=== PATIENT | male | born 1980 | race Caucasian/White ===

== ENCOUNTER 2016-05-28 01:44 | Emergency (ER) | payer BC ==
[~2016-05-28] VITALS: Ht 185.4 cm; Wt 135.0 kg
[2016-05-28 01:47] VITALS: TEMP 36.9; Ht 185.4 cm; Wt 135.0 kg
[2016-05-28] MEDS ORDERED: SODIUM CHLORIDE 0.9% 500ML 500 ML IV STA (02:04)
[2016-05-28] MEDS ORDERED: OPTIRAY 320 IV PRN (02:15)
[2016-05-28 02:25] LABS: BASO % 0.4 %; BASO ABS # 0.04 K/uL (0-0.2); COMPLETE YES; EOS % 2.4 %; HEMATOCRIT 48.5 % (42-52); IG% 0.3 %; LYMPH % 36.2 %; LYMPH ABS # 3.25 K/uL (1.2-3.4); MEAN CELL VOLUME 87.1 fL (80-100); MEAN CORPUSCULAR HEMOGLOBIN 31.8 pg (25-34); MEAN CORPUSCULAR HGB CONC 36.5 g/dl (32-36); MEAN PLATELET VOLUME 11.7 fL (7.4-10.4); MONO % 10.5 %; NEUT % 50.2 %; PLATELET COUNT 166 K/uL (130-400); RED BLOOD COUNT 5.57 M/uL (4.7-6.1); WHITE BLOOD COUNT 8.98 K/uL (4.8-10.8)
[2016-05-28 02:52] LABS: ALKALINE PHOSPHATASE 83 U/L (45-117); ALT/SGPT 74 U/L (12-78); BLOOD UREA NITROGEN 11 mg/dl (7-18); BUN/CREATININE RATIO 11.8 (10-20); CALCIUM 8.8 mg/dl (8.5-10.1); CARBON DIOXIDE 28 mmol/L (21-32); CHLORIDE 104 mmol/L (98-107); CKMB/CK RATIO 0.8 (0-3.0); CREATININE 0.93 mg/dl (0.60-1.40); GLUCOSE 105 mg/dl (70-99); SODIUM 141 mmol/L (136-145)
[2016-05-28 03:02] LABS: POTASSIUM 3.7 mmol/L (3.5-5.1)
[2016-05-28 03:10] LABS: AST/SGOT 31 U/L (15-37)
--- NOTE | 2016-05-28 04:51 | EMERGENCY ROOM VISIT NOTE ---
History First contact with patient: 01:50 Chief Complaint: SHORTNESS OF BREATH Stated Complaint: SOB WHILE LYING DOWN,OFF/ON WEIRD CHEST [facility] Nursing Triage Summary: Patient c/o SOB when lying flat that began two nights ago. Denies cardiac hx. History of Present Illness The patient is a 36 year old male who presents to the Emergency Room with complaints of intermittent chest pain and short of breath for the past 2 nights. Patient states for the past 2 nights when he lays down he is short of breath. Patient states he's been having occasional chest pains for the past few days that is brief in nature. Less than 1 minute. Patient does smoke. He does not see a doctor in a routine basis. Patient denies any active medical problems. Patient had a cold a few months ago. Patient denies prolonged chest pain, abdominal pain, fever, chills, cough, congestion, leg pain or swelling. Review of Systems See HPI for pertinent positives & negatives. A total of 10 systems reviewed and were otherwise negative. Past Medical/Surgical History [place] Social History Smoking Status: Current Every Day Smoker Smokeless Tobacco Use: No Drug Use: none Marital Status: Housing Status: lives with family Occupation Status: employed Current/Historical Medications No Active Prescriptions or Reported Meds Allergies Coded Allergies: BEE STING (Verified Allergy, Intermediate, SWELLING, 05/28/16) Physical Exam Vital Signs Date Time Temp Pulse Resp B/P Pulse Ox O2 Delivery O2 Flow Rate FiO2 05/28/16 03:05 111 18 146/90 98 Room Air 05/28/16 02:16 108 05/28/16 02:12 Room Air 05/28/16 02:12 Room Air 05/28/16 01:47 99 Room Air 05/28/16 01:47 36.9 102 18 197/67 99 Room Air Physical Exam VITALS: Vitals are noted on the nurse's note and reviewed by myself. Vital signs stable. GENERAL: Pleasant anxious-appearing male, in no acute distress, nondiaphoretic, well-developed well-nourished. SKIN: The skin was without rashes, erythema, edema, or bruising. There is no tenting of the skin. Capillary reflex less than 2 seconds. HEAD: Normocephalic atraumatic. EARS: External auditory canals clear, tympanic membranes pearly [place] without erythema or effusion bilaterally. EYES: Pupils equal round and reactive to light and accommodation. Conjunctivae without injection, sclerae without icterus. Extraocular movements intact. NOSE: Patent, turbinates without inflammation or discharge. MOUTH: Mucous membranes moist. Pharynx without erythema or exudate. Uvula midline. Airway patent. Tongue does not deviate. NECK: Supple without nuchal rigidity. No lymphadenopathy. No thyromegaly. Cervical spine is nontender. No JVD. HEART: Regular rate and rhythm without murmurs gallops or rubs. Chest nontender to palpation LUNGS: Clear to auscultation bilaterally without wheezes, rales or rhonchi. No dullness to percussion. No retractions or accessory muscle use. ABDOMEN: Positive bowel sounds x 4. Normal tympanic percussion. Soft, nontender, without masses or organomegaly. Velasquez sign negative. No guarding or rebound tenderness. MUSCULOSKELETAL: No muscle atrophy, erythema, or edema noted. NEURO: Patient was alert and oriented to person place and time. Normal sensation to light and sharp touch. No focal neurological deficits. Medical Decision & Procedures Laboratory Results 05/28/16 02:00 Red Blood Count 5.57, Mean Corpuscular Volume 87.1, Mean Corpuscular Hemoglobin 31.8, Mean Corpuscular Hemoglobin Concent 36.5, Mean Platelet Volume 11.7, Neutrophils (%) (Auto) 50.2, Lymphocytes (%) (Auto) 36.2, Monocytes (%) (Auto) 10.5, Eosinophils (%) (Auto) 2.4, Basophils (%) (Auto) 0.4, Neutrophils # (Auto ) 4.50, Lymphocytes # (Auto) 3.25, Monocytes # (Auto) 0.94, Eosinophils # (Auto ) 0.22, Basophils # (Auto) 0.04 05/28/16 02:00 Test 05/28/16 02:00 05/28/16 02:06 05/28/16 04:00 White Blood Count 8.98 K/uL (4.8-10.8) Red Blood Count 5.57 M/uL (4.7-6.1) Hemoglobin 17.7 g/dL (14.0-18.0) Hematocrit 48.5 % (42-52) Mean Corpuscular Volume 87.1 fL (80-100) Mean Corpuscular Hemoglobin 31.8 pg (25-34) Mean Corpuscular Hemoglobin Concent 36.5 g/dl (32-36) Platelet Count 166 K/uL (130-400) Mean Platelet Volume 11.7 fL (7.4-10.4) Neutrophils (%) (Auto) 50.2 % Lymphocytes (%) (Auto) 36.2 % Monocytes (%) (Auto) 10.5 % Eosinophils (%) (Auto) 2.4 % Basophils (%) (Auto) 0.4 % Neutrophils # (Auto) 4.50 K/uL (1.4-6.5) Lymphocytes # (Auto) 3.25 K/uL (1.2-3.4) Monocytes # (Auto) 0.94 K/uL (0.11-0.59) Eosinophils # (Auto) 0.22 K/uL (0-0.5) Basophils # (Auto) 0.04 K/uL (0-0.2) RDW Standard Deviation 41.6 fL (36.4-46.3) RDW Coefficient of Variation 13.0 % (11.5-14.5) Immature Granulocyte % (Auto) 0.3 % Immature Granulocyte # (Auto) 0.03 K/uL (0.00-0.02) Anion Gap 9.0 mmol/L (3-11) Est Creatinine Clear Calc Drug Dose 161.4 ml/min Estimated GFR () 123.7 Estimated GFR (Non- 106.7 BUN/Creatinine Ratio 11.8 (10-20) Calcium Level 8.8 mg/dl (8.5-10.1) Total Bilirubin 1.0 mg/dl (0.2-1) Direct Bilirubin 0.2 mg/dl (0-0.2) Aspartate Amino Transf (AST/SGOT) 31 U/L (15-37) Alanine Aminotransferase (ALT/SGPT) 74 U/L (12-78) Alkaline Phosphatase 83 U/L (45-117) Total Creatine Kinase 281 U/L (39-308) Creatine Kinase MB 2.2 ng/ml (0.5-3.6) Creatine Kinase MB Ratio 0.8 (0-3.0) Total Protein 7.8 gm/dl (6.4-8.2) Albumin 4.5 gm/dl (3.4-5.0) Lipase 347 U/L (73-393) Bedside D-Dimer 135 ng/mlFEU (0-450) Troponin I < 0.015 ng/ml (0-0.045) Medications Administered Medications (Trade) Dose Ordered Sig/Sarah Route Start Time Stop Time Status Last Admin Dose Admin Sodium Chloride (Nss 500ml) 500 ml @ 999 mls/hr Q31M STAT IV 05/28/16 02:04 05/28/16 02:34 DC 05/28/16 02:04 999 MLS/HR ED Course Prior records/ancillary studies reviewed. Triage Nursing notes reviewed. Additional history obtained from family. The patient's history was concerning for chest pain. Differential diagnosis: Etiologies such as cardiac ischemia, aortic dissection, pulmonary embolism, pneumonia, pneumothorax, musculoskeletal, infections, pericarditis, myocarditis , esophageal rupture, gastrointestinal, as well as others were entertained. Physical examination: As above. ER treatment provided: Patient was observed On reassessment the patient felt better. Diagnostic interpretation by me: The electrocardiogram was negative for pathologic change. Normal sinus, normal intervals, T wave in lead 3, no acute ST-T wave changes. Impression normal sinus rhythm interpreted by myself The labs revealed negative troponin 2 Imaging studies: Chest x-ray with no acute consolidation, pneumothorax or free air per my interpretation CTA is negative for PE per stat radiology Exam and history seem consistent with noncardiac chest pain. Patient is well- appearing. Negative troponin 2, 2 hours prior. He was advised to follow-up family care in a few days for further evaluation and workup for his symptoms today and to quit smoking. He was advised return to the immediate for chest pain, difficulty breathing, worsening signs or symptoms or as needed.By the evaluation outlined above emergent etiologies such as cardiac ischemia, aortic dissection, pulmonary embolism, pneumonia, pneumothorax, infections, pericarditis, myocarditis, gastrointestinal, as well as others were deemed relatively unlikely. The pt informed about the findings as listed above. All questions were answered and pleased with the treatment. Return instructions were outlined and the patient was discharged in stable condition. Referral: The patient was referred back to primary care physician for follow-up in 2 to 3 days for a recheck of the current condition. Case reviewed with my attending Medical Decision As above Impression Primary Impression: Precordial chest pain Additional Impression: Dyspnea Departure Information Dispostion Home / Self-Care Condition GOOD Prescriptions No Active Prescriptions or Reported Meds Referrals No Doctor, Assigned (PCP) Patient Instructions My [facility] Additional Instructions Ibuprofen(Motrin, Advil) may be used for fever or pain. Use 600mg every six hours as needed. Take with food. Avoid using more than 2400mg in a 24 hour period. Do not use 2400mg per day for more than three consecutive days without physician direction. Prolonged inappropriate use can lead to stomach upset or ulcers. (AND/OR) Acetaminophen(Tylenol) may be used for fever or pain. Use 1000mg every six hours as needed. Avoid using more than 3000mg in a 24 hour period. Strongly recommend that you quit smoking. Rest and drink plenty of fluids as tolerated. Continue current medications. Avoid strenuous activities and anything that worsens your pain. Resume normal activities once your symptoms resolve. Return to the ER immediately for worsening or persistent chest pain, abdominal pain, vomiting, fevers, chest pains, difficulty breathing, worsening of your condition, or as needed. Follow up with your primary physician in 2-3 days for a recheck of your current condition. Problem Qualifiers Additional Impression: Dyspnea Dyspnea type: orthopnea Qualified Codes: R06.01 - Orthopnea
[2016-05-28 05:05] VITALS: BP 159/99; PULSE 85; O2SAT 96
--- NOTE | 2016-05-28 07:36 | DIAGNOSTIC IMAGING REPORT ---
SINGLE VIEW CHEST CLINICAL HISTORY: Atypical chest pain. FINDINGS: An AP, portable, upright chest radiograph is obtained. No prior studies are available for comparison at the time of dictation. The examination is mildly degraded by portable technique and patient rotation. The cardiomediastinal silhouette is unremarkable. The lungs and pleural spaces are clear. No pneumothorax is seen. The bony thorax is grossly intact. IMPRESSION: No active disease in the chest. Electronically signed by: Jim Rojo M.D. 05/28/2016 7:35 AM Dictated Date/Time: 05/28/2016 7:35 AM
--- NOTE | 2016-05-28 07:39 | DIAGNOSTIC IMAGING REPORT ---
CT ANGIOGRAM OF THE CHEST CLINICAL HISTORY: Atypical chest pain. COMPARISON STUDY: Chest radiograph dated 05/28/16. TECHNIQUE: Following the IV administration of 92 cc of Optiray 320, CT angiogram of the chest was performed from the upper abdomen to the thoracic inlet utilizing the pulmonary embolus protocol. Images are reviewed in the axial, sagittal, and coronal planes. 3-D MIPS images are created and assessed. IV contrast was administered without complication. CT DOSE: 791.87 mGy.cm FINDINGS: Thyroid: Imaged portions of the thyroid gland are normal in size and attenuation. Thoracic aorta: The thoracic aorta is normal in caliber and demonstrates standard 3-vessel arch anatomy. No dissection is seen. Pulmonary vasculature: The pulmonary trunk is normal in caliber. There are no filling defects identified in main, lobar, or proximal segmental pulmonary branches to suggest pulmonary embolus. Evaluation of the peripheral branches is degraded by suboptimal contrast opacification. Heart: The heart is normal in size and configuration, and without pericardial effusion. Lungs and pleural spaces: Evaluation of the lung parenchyma is modestly degraded by respiratory motion artifact. No airspace consolidation or pleural effusion is identified. The trachea and central airways are clear. Mediastinum: There is no mediastinal lymphadenopathy. Yadira: Clear. Axillae: There is no axillary lymphadenopathy. Upper abdomen: There is a small hiatal hernia. The spleen is enlarged measuring 14.2 cm in length. Skeletal structures: No lytic or blastic bony lesions are seen. IMPRESSION: 1. There is no evidence of central pulmonary embolus in the main, lobar, or proximal segmental pulmonary arteries. 2. There is no airspace consolidation or pleural effusion. 3. Mild splenomegaly. Electronically signed by: Jim Rojo M.D. 05/28/2016 7:38 AM Dictated Date/Time: 05/28/2016 7:35 AM
== END 2016-05-28 05:11 | disposition home or self-care (01) ==
LOC: C.EDB 01:46 → C.EDA 05:11
DX: R07.2 Precordial pain (principal); R06.00 Dyspnea, unspecified; G47.33 Obstructive sleep apnea (adult) (pediatric); F17.200 Nicotine dependence, unspecified, uncomplicated

== ENCOUNTER 2017-12-13 14:02 | Emergency (ER) | payer BC ==
[~2017-12-13] VITALS: Ht 185.4 cm; Wt 106.2 kg
[2017-12-13 14:05] VITALS: TEMP 36.5; Ht 185.4 cm; Wt 106.2 kg
--- NOTE | 2017-12-13 14:47 | EMERGENCY ROOM VISIT NOTE ---
History Report prepared by Dyan: Seema Barnes Under the Supervision of: Dr. Fercho Lockwood M.D. First contact with patient: 14:08 Chief Complaint: CHEST PAIN Stated Complaint: CHEST PAIN,FEELS WARM History of Present Illness The patient is a 37 year old male who presents to the Emergency Room with complaints of chest pain beginning around 0930 this morning. He reports he had 1 episode at 0930 that lasted about 5 minutes, one 5 minute episode at 1030, and another while driving to the ED which he describes as "warmth in the center of his chest." He rates his pain as a 2/10 in severity and it is currently resolved. He notes he has had some heartburn and indigestion for the past 3 months, so he has been taking walks in the morning as they alleviate his symptoms. He reports he went on a walk this morning before his chest pain began. He also notes that he took 1 Prilosec for the first time this morning to try and alleviate some of his heartburn. Pt denies LOC, headache, fevers, chills , diaphoresis, visual changes, neck pain, tearing pain radiating to the back, personal history or family history of aneurysm or pulmonary embolism, uncontrolled hypertension, breathing difficulties, leg swelling, coagulation abnormalities, prolonged travel, recent surgery or immobilization, nausea, vomiting, abdominal pain, melena, hematochezia, urinary symptoms, numbness, weakness, lymphadenopathy, rash, or other complaints. His PCP is Frank Vernon and he notes he is trying to quit smoking and only does it occasionally. Source of History: patient Onset: 0930 this morning Position: chest (center) Symptom Intensity: 2/10 in severity Quality: other ("warmth") Timing: other (3 5 minute episodes) Review of Systems See HPI for pertinent positives and negatives. A total of ten systems were reviewed and were otherwise negative. Past Medical & Surgical Medical Problems: (1) Stomach problems Family History FH: diabetes mellitus Heart disease High blood pressure Social History Smoking Status: Current Some Day Smoker Alcohol Use: occasionally Drug Use: none Marital Status: Housing Status: lives with family Occupation Status: employed Current/Historical Medications Scheduled Multivitamin (Multivitamin), 1 TAB PO DAILY Omeprazole (Prilosec), 20 MG PO DAILY Allergies Coded Allergies: BEE STING (Verified Allergy, Intermediate, SWELLING, 8/21/18) Physical Exam Vital Signs Date Time Temp Pulse Resp B/P (MAP) Pulse Ox O2 Delivery O2 Flow Rate FiO2 12/13/17 16:41 66 18 142/76 98 12/13/17 15:14 88 16 140/75 98 Room Air 12/13/17 14:50 100 Room Air 12/13/17 14:50 100 Room Air 12/13/17 14:36 81 12/13/17 14:05 36.5 93 18 165/89 100 Room Air Physical Exam GENERAL: Awake, alert, well-appearing, in no distress HENT: Normocephalic, atraumatic. Oropharynx unremarkable. EYES: Normal conjunctiva. Sclera non-icteric. NECK: Supple. No nuchal rigidity. FROM. No masses. RESPIRATORY: Clear to auscultation. No wheezes. No rales. Normal respiratory effort. CARDIAC: Normal rate. Normal rhythm. No murmurs. No rubs. Extremities warm and well perfused. Pulses equal. No JVD. GI: Soft, non-distended. No tenderness to palpation. No rebound or guarding. No masses. RECTAL: Deferred. MUSCULOSKELETAL: Atraumatic. Chest examination reveals no tenderness. The back is symmetrical on inspection without obvious abnormality. There is no CVA tenderness to palpation. No joint edema. LOWER EXTREMITIES: Calves are equal size bilaterally and non-tender. No edema. No discoloration. NEURO: Normal sensorium. No sensory or motor deficits noted. SKIN: No rash or jaundice noted. Medical Decision & Procedures ER Provider Diagnostic Interpretation: Radiology results as stated below per my review and radiologist interpretation: CHEST ONE VIEW PORTABLE CLINICAL HISTORY: 37 years-old Male presenting with CHEST PAIN and indigestion. TECHNIQUE: Portable upright AP view of the chest was obtained. COMPARISON: 05/28/2016. FINDINGS: Cardiomediastinal silhouette normal. Lungs and pleural spaces clear. Osseous structures normal. Upper abdomen normal. IMPRESSION: 1. No acute cardiopulmonary disease. Electronically signed by: Matt Khan M.D. 12/13/2017 2:44 PM Laboratory Results 12/13/17 14:45 Red Blood Count 5.09, Mean Corpuscular Volume 86.6, Mean Corpuscular Hemoglobin 31.0, Mean Corpuscular Hemoglobin Concent 35.8, Mean Platelet Volume 11.5, Neutrophils (%) (Auto) 67.3, Lymphocytes (%) (Auto) 24.3, Monocytes (%) (Auto) 7.3, Eosinophils (%) (Auto) 0.7, Basophils (%) (Auto) 0.3, Neutrophils # (Auto) 4.53, Lymphocytes # (Auto) 1.64, Monocytes # (Auto) 0.49, Eosinophils # (Auto) 0.05, Basophils # (Auto) 0.02 12/13/17 14:45 Test 12/13/17 14:45 12/13/17 14:55 12/13/17 16:13 White Blood Count 6.74 K/uL (4.8-10.8) Red Blood Count 5.09 M/uL (4.7-6.1) Hemoglobin 15.8 g/dL (14.0-18.0) Hematocrit 44.1 % (42-52) Mean Corpuscular Volume 86.6 fL (80-100) Mean Corpuscular Hemoglobin 31.0 pg (25-34) Mean Corpuscular Hemoglobin Concent 35.8 g/dl (32-36) Platelet Count 135 K/uL (130-400) Mean Platelet Volume 11.5 fL (7.4-10.4) Neutrophils (%) (Auto) 67.3 % Lymphocytes (%) (Auto) 24.3 % Monocytes (%) (Auto) 7.3 % Eosinophils (%) (Auto) 0.7 % Basophils (%) (Auto) 0.3 % Neutrophils # (Auto) 4.53 K/uL (1.4-6.5) Lymphocytes # (Auto) 1.64 K/uL (1.2-3.4) Monocytes # (Auto) 0.49 K/uL (0.11-0.59) Eosinophils # (Auto) 0.05 K/uL (0-0.5) Basophils # (Auto) 0.02 K/uL (0-0.2) RDW Standard Deviation 39.9 fL (36.4-46.3) RDW Coefficient of Variation 12.5 % (11.5-14.5) Immature Granulocyte % (Auto) 0.1 % Immature Granulocyte # (Auto) 0.01 K/uL (0.00-0.02) Anion Gap 8.0 mmol/L (3-11) Est Creatinine Clear Calc Drug Dose 162.8 ml/min Estimated GFR () 133.5 Estimated GFR (Non- 115.1 BUN/Creatinine Ratio 12.2 (10-20) Calcium Level 9.5 mg/dl (8.5-10.1) Total Bilirubin 2.1 mg/dl (0.2-1) Direct Bilirubin 0.4 mg/dl (0-0.2) Aspartate Amino Transf (AST/SGOT) 19 U/L (15-37) Alanine Aminotransferase (ALT/SGPT) 42 U/L (12-78) Alkaline Phosphatase 65 U/L (45-117) Total Creatine Kinase 145 U/L (39-308) Creatine Kinase MB 1.7 ng/ml (0.5-3.6) Creatine Kinase MB Ratio 1.2 (0-3.0) Total Protein 7.7 gm/dl (6.4-8.2) Albumin 4.5 gm/dl (3.4-5.0) Lipase 144 U/L (73-393) Bedside D-Dimer 72 ng/mlFEU (0-450) Bedside Troponin I < 0.030 ng/ml (0-0.045) Laboratory results reviewed by me ECG Per My Interpretation Indication: chest pain Rate (beats per minute): 81 Rhythm: sinus rhythm (with sinus arrhythmia ) Findings: RBBB (incomplete), other (no ST elevation or depression, no PACs or PVCs ) ED Course 1414: The patient was evaluated in room C10. A complete history and physical exam was performed. 1550: Discussed the patient's case with Dr. Devaughn [facility] Cardiology. He stated they cannot stress today and he recommends an outpatient follow up. 1630: [facility]iology states the patient will follow up with an outpatient stress test. 1635: I reevaluated the patient. Discussed results and discharge instructions: He verbalized understanding and agreement. The patient is ready for discharge. Medical Decision Prior records/ancillary studies reviewed. Patient had a negative ED cardiac workup in May 2016. Triage Nursing notes reviewed and agree them. The patient's history was concerning for chest pain. Differential diagnosis: Etiologies such as cardiac ischemia, aortic dissection, pulmonary embolism, pneumonia, pneumothorax, musculoskeletal, infections, pericarditis, myocarditis , esophageal rupture, gastrointestinal, as well as others were entertained. Physical examination: As above. ER treatment provided: No medication given. On reassessment the patient felt well. Diagnostic interpretation by me: The electrocardiogram was negative for pathologic change. The labs revealed an unremarkable CBC and chemistry panel. Negative d-dimer. Negative troponin 2. Imaging studies: Chest x-ray as above Consultation: A consultation was placed with Dr. Cantor of [facility]. Case was discussed. Unfortunately due to the time of day a stress test was not available. He did present to the ER and evaluated the patient. He felt the patient was stable for discharge from cardiac standpoint and could be followed up in his office. Patient was provided with that information. Patient feels comfortable with this plan. If he worsens in any way he will be back. By the evaluation outlined above other emergent etiologies such as those listed in the differential, as well as others, were deemed relatively unlikely. The patient was educated about the findings as listed above. All questions were answered and the patient was pleased with the treatment. Return instructions were outlined and the patient was discharged in stable condition. The patient was referred to [facility] and his PCP for follow-up for a recheck of the current condition. Medication Reconcilliation Current Medication List: was personally reviewed by me Blood Pressure Screening Patient's blood pressure: Elevated blood pressure Blood pressure disposition: Referred to PCP Consults Time Called: 1546 Consulting Physician: Dr. Devaughn [facility] Card[facility] Returned Call: 1550 Discussed the patient's case with Dr. Devaughn Radford. He stated they cannot stress today and he recommends an outpatient follow up. Impression Primary Impression: Substernal chest pain Scribe Attestation The scribe's documentation has been prepared under my direction and personally reviewed by me in its entirety. I confirm that the note above accurately reflects all work, treatment, procedures, and medical decision making performed by me. Departure Information Dispostion Home / Self-Care Referrals No Doctor, Assigned (PCP) Forms Call Back Authorization, HOME CARE DOCUMENTATION FORM, IMPORTANT VISIT INFORMATION Patient Instructions My [facility] Additional Instructions CHEST PAIN INSTRUCTIONS: Acetaminophen(Tylenol) may be used for fever or pain. Use 1000mg every six hours as needed. Avoid using more than 4000mg in a 24 hour period. Rest and drink plenty of fluids as tolerated. Continue current medications. Avoid strenuous activities and anything that worsens your pain. Resume normal activities once your symptoms resolve. Return to the ER immediately for worsening or persistent chest pain, abdominal pain, vomiting, fevers, chest pains, difficulty breathing, worsening of your condition, or as needed. Follow up with your primary physician in 2-3 days for a recheck of your current condition. You will receive a phone call from the cardiology team in 1-2 days regarding an outpatient follow-up. If you do not hear from them contact the office number listed below under Dr. Gonzalez.
[2017-12-13 14:50] VITALS: O2SAT 100
[2017-12-13 14:58] LABS: BASO % 0.3 %; BASO ABS # 0.02 K/uL (0-0.2); EOS % 0.7 %; EOS ABS # 0.05 K/uL (0-0.5); HEMATOCRIT 44.1 % (42-52); HEMOGLOBIN 15.8 g/dL (14.0-18.0); IG# 0.01 K/uL (0.00-0.02); LYMPH % 24.3 %; LYMPH ABS # 1.64 K/uL (1.2-3.4); MEAN CELL VOLUME 86.6 fL (80-100); MEAN CORPUSCULAR HGB CONC 35.8 g/dl (32-36); MEAN PLATELET VOLUME 11.5 fL (7.4-10.4); MONO % 7.3 %; MONO ABS # 0.49 K/uL (0.11-0.59); NEUT % 67.3 %; NEUT ABS # 4.53 K/uL (1.4-6.5); PLATELET COUNT 135 K/uL (130-400); RED CELL DISTRIBUTION WIDTH CV 12.5 % (11.5-14.5); RED CELL DISTRIBUTION WIDTH SD 39.9 fL (36.4-46.3); WHITE BLOOD COUNT 6.74 K/uL (4.8-10.8)
[2017-12-13 15:21] LABS: ALBUMIN 4.5 gm/dl (3.4-5.0); CALCIUM 9.5 mg/dl (8.5-10.1); CKMB 1.7 ng/ml (0.5-3.6); CREATININE 0.81 mg/dl (0.60-1.40); POTASSIUM 3.9 mmol/L (3.5-5.1); TOTAL PROTEIN 7.7 gm/dl (6.4-8.2)
[2017-12-13] MEDS ORDERED: ASPI81TA28 PO (15:31)
[2017-12-13] MEDS ORDERED: PRLSR20 PO (15:47)
[2017-12-13] MEDS ORDERED: MULT-506 PO (15:47)
[2017-12-13 16:41] VITALS: BP 142/76; PULSE 66; O2SAT 98
--- NOTE | 2017-12-13 17:55 | CARDIOLOGY CONSULTATION ---
DATE OF CONSULTATION: 12/13/2017 CONSULTATION REQUESTED BY: Fercho Lockwood MD REASON FOR CONSULTATION: Chest pain. HISTORY OF PRESENT ILLNESS: Mr. Vo is a very pleasant 37-year-old gentleman who presented to [facility] on 12/13/2017 with a complaint of chest pain. The patient states that this morning he was having some abdominal distention and belching. This has been going on for a few weeks now, but when it occurs, he normally goes for a walk and it resolves. This morning he went for his normal walk, he continued to belch, and the distention resolved; however, he developed chest discomfort. He described it as a substernal burning sensation that seemed to radiate across the precordium. It lasted for about 5 or 6 minutes, but as it persisted, he became more and more anxious, the pain seemed to have worsened, and he developed a sense of doom. The discomfort subsided before arrival to the Emergency Department. Upon arrival here, his EKG is unremarkable, and troponin was also negative x2, and he is now without complaint at rest. PAST SURGICAL HISTORY: Denies. PAST MEDICAL HISTORY: 1. Obstructive sleep apnea, nocturnal CPAP. 2. Tobacco abuse. FAMILY HISTORY: Denies any premature coronary artery disease in first degree relatives. SOCIAL HISTORY: Patient has been trying to quit tobacco since April, continues to smoke on irregular basis. Denies any alcohol or recreational drug use. He is . He lives at home with his . No children. He is currently employed as an automobile damage appraiser. He exercises by jogging on a regular basis. REVIEW OF SYSTEMS: As per HPI, all other review of systems reviewed and negative at this time. ALLERGIES: No known drug allergies. MEDICATIONS: As an outpatient, denies. PHYSICAL EXAMINATION: VITAL SIGNS: Temperature 36.5, pulse 88, respiratory rate 12, blood pressure 140/75. GENERAL: Awake, alert, oriented x3, in no acute distress, mildly anxious. HEENT: Normocephalic and atraumatic. Pupils equal, round, and reactive to light and accommodation. Extraocular muscles intact. Anicteric sclerae. Moist mucous membranes. NECK: No JVD, no bruit. CARDIOVASCULAR: Regular. No S4. Normal S1 and S2. No S3. No murmurs, rubs, or gallops. PULMONARY: Clear to auscultation bilaterally. No rales, rhonchi, or wheezing. ABDOMEN: Bowel sounds x4, soft. No rebound, guarding, or tenderness. No organomegaly. EXTREMITIES: No clubbing, cyanosis, or edema. +2 pedal pulses bilaterally. SKIN: Warm and dry. EKG: A 12-lead EKG performed in the Emergency Department, independently reviewed at this time, shows normal sinus rhythm at 81 beats per minute with sinus arrhythmia, incomplete right bundle-branch block, no signs of active ischemia. Troponin negative x2. IMPRESSION: 1. Chest discomfort. 2. Incomplete right bundle-branch block on EKG. 3. Tobacco abuse. RECOMMENDATIONS: It is my pleasure to see Mr. Vo in consultation today. From the cardiac standpoint, the patient was counseled that an ischemic evaluation will be warranted at this time; however, whether to do it on an inpatient or outpatient basis is up to the patient. He states he would greatly prefer to do it as an outpatient, so the patient will be discharged from the Emergency Room, and my office will call to set up an outpatient exercise stress echocardiogram. In the meantime, I have recommended he continue the Prilosec that he has already restarted and use Tums or Rolaids p.r.n. indigestion, and he should follow up with his primary care physician doctor ultimately. Otherwise, he is counseled in no uncertain terms he must absolutely stop smoking.
== END 2017-12-13 16:41 | disposition home or self-care (01) ==
LOC: C.EDB 14:04 → C.EDC 16:41
DX: R07.2 Precordial pain (principal); G47.33 Obstructive sleep apnea (adult) (pediatric); F17.210 Nicotine dependence, cigarettes, uncomplicated; Z79.899 Other long term (current) drug therapy; Z91.030 Bee allergy status